=== PATIENT | female | born 1960 | race Hispanic/Latino ===

== ENCOUNTER 2018-02-24 08:58 | Outpatient (CLI) | payer OTHER ==
[2018-02-24 10:11] LABS: Estimated GFR-MDRD - POC Greater than 90
--- NOTE | 2018-02-24 12:38 | CT ---
CONTRAST ENHANCED CT IMAGES NECK: HISTORY: Patient with possible left neck mass. FINDINGS: A CTA of the neck as well as a contrast enhanced CT of the soft tissue neck was ordered; however, the insurance company refused obtaining the CTA; therefore, only a contrast enhanced CT of the soft tiss ue neck was performed due to insurance not approving the exam. A contrast enhanced CT of the soft tissue neck demonstrates a 2.1 x 2.3 x 3.4 cm heterogeneously and extensively enhancing mass must medial to the left carotid bifurcation. A small amount of this exten ds into the carotid bifurcation while the majority is more medial to the carotid bifurcation. 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 Minimal heterogeneity is also seen in the posterior aspect of the left thyroid lobe, too small to yvette racterize. No significant evidence of abnormal lymphadenopathy is seen. Some post reactive, minimally enlarged lymph nodes are seen. IMPRESSION: Left carotid space heterogeneously enhancing mass, just medial to the carotid bifurcation. 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 POS: VANESA
== END 2018-02-24 08:59 | disposition home or self-care (01) ==
LOC: CT 08:58
PROVIDERS: ATTEND Otolaryngology Plastic Surgery within the Head & Neck
DX: D35.5 Benign neoplasm of carotid body (principal)
CPT/HCPCS: 70491; 82565

== ENCOUNTER 2018-03-05 09:23 | Outpatient (CLI) | payer OTHER ==
[2018-03-05] MEDS ORDERED: Iopamidol 370 76% 100 ML VIAL ONE (11:15)
--- NOTE | 2018-03-05 11:51 | CT ---
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 2D and 3D reconstructed images performed on a n independent 3D workstation. FINDINGS: Images again demonstrating enhancing left medial distal common and proximal ICA and CCA enhancing mas s. This mass appears to have feeding vessels from the left external carotid artery. The feeding vesse ls are predominately along the lateral aspect of the mass. The mass is medial to the left ICA/CCA bif urcation. It does not significantly displace the left ICA bifurcation anteriorly and posteriorly. The inferior margin of the mass does envelope the distal left CCA approximately 50% (180 degrees). The e nhancing mass extends from the upper aspect of the hyoid bone superiorly to just above the angle of t he left mandible running along the left carotid space. No evidence of ICA disease is seen otherwise. Right and left internal carotid arteries are patent. Th e right and left vertebral arteries are also patent. 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 The majority of the feeder v essels appear to originate from the left external carotid artery. POS: C
== END 2018-03-05 09:24 | disposition home or self-care (01) ==
LOC: CT 09:23
PROVIDERS: ATTEND Otolaryngology Plastic Surgery within the Head & Neck
DX: D35.6 Benign neoplasm of aortic body and other paraganglia (principal)
CPT/HCPCS: 70498

== ENCOUNTER 2018-08-11 08:52 | Outpatient (CLI) | payer BC, OTHER | END 2018-08-11 08:53 | disposition home or self-care (01) | LOC: BICMAMMO 08:52 | PROVIDERS: ATTEND Family Medicine | DX: Z12.31 Encounter for screening mammogram for malignant neoplasm of breast (principal); R92.1 Mammographic calcification found on diagnostic imaging of breast | CPT/HCPCS: 77063; 77067 ==

== ENCOUNTER 2019-08-11 14:32 | Outpatient (CLI) | payer BC ==
--- NOTE | 2019-08-11 15:39 | MMO ---
Bilateral MAMMO Bilat Screen [facility]DI. CLINICAL HISTORY: Patient is 59 years old and is seen for screening. The patient has no family history of breast cancer. The patient has no personal history of cancer. VIEWS: The views performed were: bilateral craniocaudal and bilateral mediolateral oblique. FILMS COMPARED: The present examination [place] been compared to [place] [facility] [place] 05/07/[place], 07/13/2017 and 08/11/2018. This study has been interpreted with the assistance of computer-aided detection. MAMMOGRAM FINDINGS: There are scattered fibroglandular densities. There are stable benign appearing calcifications seen in both breasts. There are no suspicious masses, suspicious calcifications, or new areas of architectural distortion. IMPRESSION: THERE IS NO MAMMOGRAPHIC EVIDENCE OF MALIGNANCY. A ROUTINE FOLLOW-UP MAMMOGRAM IN 1 YEAR IS RECOMMENDED. ACR BI-RADS Category 2 - Benign finding MAMMOGRAPHY NOTE: 1. A negative mammogram report should not delay a biopsy if a dominant of clinically suspicious mass is present. 2. Approximately 10% to 15% of breast cancers are not detected by mammography. 3. Adenosis and dense breasts may obscure an underlying neoplasm. Reported by: SONA LAWS MD Electonically Signed: [id number]
== END 2019-08-11 14:33 | disposition home or self-care (01) ==
LOC: BICMAMMO 14:32 → EDSTATUS 14:45
PROVIDERS: ATTEND Nurse Practitioner Family
DX: Z12.31 Encounter for screening mammogram for malignant neoplasm of breast (principal)
CPT/HCPCS: 77067

== ENCOUNTER 2020-05-17 15:37 | Outpatient (CLI) | payer BC ==
--- NOTE | 2020-05-17 16:02 | RAD ---
Left RIBS 3 views HISTORY: Chest wall pain. FINDINGS: No displaced rib fractures or pneumothorax are evident. There are degenerative changes of the left shoulder and thoracic spine. IMPRESSION : No acute osseous abnormalities are demonstrated.
== END 2020-05-17 15:38 | disposition home or self-care (01) ==
LOC: RAD-FRANK 15:37
PROVIDERS: ATTEND Nurse Practitioner Family
DX: R07.81 Pleurodynia (principal)

== ENCOUNTER 2021-03-13 10:26 | Outpatient (CLI) | payer BC, OTHER | END 2021-03-13 10:27 | disposition home or self-care (01) | LOC: BICMAMMO 10:26 | PROVIDERS: ATTEND Nurse Practitioner Family | DX: Z12.31 Encounter for screening mammogram for malignant neoplasm of breast (principal) | CPT/HCPCS: 77063; 77067 ==

== ENCOUNTER 2022-09-03 11:08 | Outpatient (CLI) | payer OTHER | END 2022-09-03 11:09 | disposition home or self-care (01) | LOC: BICMAMMO 11:08 | PROVIDERS: ATTEND Family Medicine | DX: Z12.31 Encounter for screening mammogram for malignant neoplasm of breast (principal) | CPT/HCPCS: 77063; 77067 ==

== ENCOUNTER 2023-11-11 08:49 | Outpatient (CLI) | payer OTHER | END 2023-11-11 08:50 | disposition home or self-care (01) | LOC: BICMAMMO 08:49 | PROVIDERS: ATTEND Family Medicine | DX: Z12.31 Encounter for screening mammogram for malignant neoplasm of breast (principal) | CPT/HCPCS: 77063; 77067 ==